=== PATIENT | male | born 1955 | race Caucasian/White ===

== ENCOUNTER 2018-03-07 01:02 | Observation (INO) | payer OTHER, BC ==
[2018-03-07 02:00] LABS: ADD MAN DIFF? NO
[2018-03-07 02:01] LABS: WHITE BLOOD COUNT 15.8 10^3/ul (4.8-10.8)
[2018-03-07 02:01] LABS: BASOPHIL # 0.1 10^3/ul (0.0-0.1); BASOPHILS % 0.4 % (0.0-2.0); EOSINOPHILS # 0.1 10^3/ul (0.0-0.5); EOSINOPHILS % 0.6 % (0.0-7.0); HEMATOCRIT 43.3 % (42.0-52.0); HEMOGLOBIN 14.5 g/dl (14.0-18.0); LYMPHOCYTES # 1.6 10^3/ul (0.8-2.9); MEAN CORPUSCULAR HEMOGLOBIN 30.1 pg (29.0-33.0); MEAN CORPUSCULAR HGB CONC 33.5 g/dl (32.0-37.0); MEAN CORPUSCULAR VOLUME 89.8 fl (82.0-101.0); MEAN PLATELET VOLUME 10.3 fl (7.4-10.4); MONOCYTE # 1.4 10^3/ul (0.3-0.9); MONOCYTES % 8.6 % (0.0-11.0); NEUTROPHIL # 12.6 10^3/ul (1.6-7.5); NEUTROPHILS % 79.9 % (39.0-77.0); PLATELET COUNT 226 10^3/UL (140-415); RED BLOOD COUNT 4.82 10^6/ul (4.70-6.10); RED CELL DISTRIBUTION WIDTH 12.8 % (11.5-14.5)
[2018-03-07 02:19] LABS: ANION GAP 12 (8-16); BLOOD UREA NITROGEN 17 mg/dl (7-20); CARBON DIOXIDE 25 mmol/L (21-31); CHLORIDE 108 mmol/L (97-110); GLUCOSE 150 mg/dl (70-220); POTASSIUM 4.1 mmol/L (3.5-5.1); SODIUM 141 mmol/L (135-144)
[2018-03-07] MEDS: ASPIRIN 81 MG TAB PO (02:22)
[2018-03-07] MEDS: NITROGLYCERIN 2% 1 GM OINT PKT TD (02:24)
[2018-03-07 02:25] LABS: INR 0.91; PROTIME 12.3 Sec (11.9-14.9)
[2018-03-07 02:26] LABS: PARTIAL THROMBOPLASTIN TIME 25.3 Sec (23.0-35.0)
[2018-03-07 02:31] LABS: TROPONIN-I < 0.012 ng/ml (0.000-0.120)
[2018-03-07] MEDS ORDERED: NACL 0.9% 3 ML SYG IV (07:00)
[2018-03-07] MEDS ORDERED: NITROGLYCERIN (SL) 0.4 MG TAB SL (07:00)
[2018-03-07] MEDS ORDERED: ACETAMINOPHEN 325 MG TAB PO (07:00)
[2018-03-07] MEDS ORDERED: ONDANSETRON 4 MG INJ IV (07:00)
[2018-03-07 09:24] LABS: CREATINE KINASE 128 IU/L (23-200)
[2018-03-07 09:34] LABS: CK INDEX 0.4; CK-MB 0.51 ng/ml (0.0-2.4); TROPONIN-I < 0.012 ng/ml (0.000-0.120)
[2018-03-07] MEDS: ASPIRIN (EC) 81 MG TAB PO (10:38)
[2018-03-07] MEDS: PANTOPRAZOLE (EC) 40 MG TAB PO (10:38)
[2018-03-07] MEDS: METOPROLOL 50 MG TAB PO ×2 (10:39→21:33)
[2018-03-07] MEDS: LISINOPRIL 5 MG TAB PO (10:39)
[2018-03-07] MEDS: ENOXAPARIN 40 MG/0.4 ML SYG SC (10:52)
[2018-03-07] MEDS: SUCRALFATE (100 MG/ML) 10ML CUP PO ×3 (13:19→21:33)
[2018-03-07 15:05] LABS: CREATINE KINASE 114 IU/L (23-200)
[2018-03-07 15:16] LABS: CK INDEX 0.4; TROPONIN-I < 0.012 ng/ml (0.000-0.120)
[2018-03-07] MEDS: ATORVASTATIN 20 MG TAB PO (21:33)
[2018-03-08] MEDS: PANTOPRAZOLE (EC) 40 MG TAB PO (05:46)
[2018-03-08 07:42] LABS: ADD UMIC NO; UR ASCORBIC ACID 40 mg/dL (NEGATIVE); UR BILIRUBIN (Dip) NEGATIVE (NEGATIVE); UR BLOOD (Dip) NEGATIVE (NEGATIVE); UR CLARITY CLEAR (CLEAR); UR COLOR YELLOW (YELLOW); UR GLUCOSE (Dip) NEGATIVE (NEGATIVE); UR KETONES (Dip) NEGATIVE (NEGATIVE); UR LEUKOCYTE ESTERASE (Dip) NEGATIVE Leu/ul (NEGATIVE); UR NITRITE (Dip) NEGATIVE (NEGATIVE); UR SPECIFIC GRAVITY (Dip) 1.015 (1.003-1.030); UR TOTAL PROTEIN (Dip) NEGATIVE (NEGATIVE); UR UROBILINOGEN (Dip) NEGATIVE (NEGATIVE)
[2018-03-08 08:12] LABS: ADD MAN DIFF? NO
[2018-03-08 08:20] LABS: ABNORMAL IP MESSAGE 1; BASOPHILS % 0.3 % (0.0-2.0); EOSINOPHILS # 0.2 10^3/ul (0.0-0.5); EOSINOPHILS % 1.3 % (0.0-7.0); HEMATOCRIT 43.2 % (42.0-52.0); HEMOGLOBIN 14.4 g/dl (14.0-18.0); LYMPHOCYTES # 2.5 10^3/ul (0.8-2.9); LYMPHOCYTES % 20.2 % (15.0-51.0); MEAN CORPUSCULAR HEMOGLOBIN 30.2 pg (29.0-33.0); MEAN CORPUSCULAR HGB CONC 33.3 g/dl (32.0-37.0); MEAN CORPUSCULAR VOLUME 90.6 fl (82.0-101.0); MEAN PLATELET VOLUME 10.2 fl (7.4-10.4); MONOCYTE # 1.6 10^3/ul (0.3-0.9); MONOCYTES % 13.1 % (0.0-11.0); NEUTROPHIL # 7.9 10^3/ul (1.6-7.5); NEUTROPHILS % 64.6 % (39.0-77.0); PLATELET COUNT 209 10^3/UL (140-415); POSITIVE DIFF @See below; RED BLOOD COUNT 4.77 10^6/ul (4.70-6.10)
[2018-03-08 08:20] LABS: WHITE BLOOD COUNT 12.3 10^3/ul (4.8-10.8)
[2018-03-08] MEDS: ASPIRIN (EC) 81 MG TAB PO (08:43)
[2018-03-08] MEDS: SUCRALFATE (100 MG/ML) 10ML CUP PO (08:43)
[2018-03-08] MEDS: ENOXAPARIN 40 MG/0.4 ML SYG SC (08:43)
[2018-03-08] MEDS: LISINOPRIL 5 MG TAB PO (08:43)
[2018-03-08] MEDS: METOPROLOL 50 MG TAB PO (08:44)
[2018-03-08 08:48] LABS: ALANINE AMINOTRANSFERASE 44 IU/L (13-69); ALBUMIN 3.6 g/dl (3.3-4.9); ALBUMIN/GLOBULIN RATIO 1.12; ALKALINE PHOSPHATASE 52 IU/L (42-121); ANION GAP 13 (8-16); ASPARTATE AMINO TRANSFERASE 24 IU/L (15-46); BILIRUBIN,INDIRECT 1.3 mg/dl (0-1.1); BILIRUBIN,TOTAL 1.3 mg/dl (0.2-1.3); BLOOD UREA NITROGEN 15 mg/dl (7-20); CARBON DIOXIDE 30 mmol/L (21-31); CHLORIDE 103 mmol/L (97-110); CHOL/HDL RATIO 2.9 RATIO; CHOLESTEROL 145 mg/dl (100-200); CREATININE 0.93 mg/dl (0.61-1.24); GLUCOSE 111 mg/dl (70-220); HDL CHOLESTEROL 49 mg/dl (30-78); LDL CHOLESTEROL,CALCULATED 75 mg/dl; MAGNESIUM 2.1 mg/dl (1.7-2.5); POTASSIUM 4.2 mmol/L (3.5-5.1); SODIUM 142 mmol/L (135-144); TOTAL PROTEIN 6.8 g/dl (6.1-8.1); TRIGLYCERIDES 107 mg/dl (0-149)
== END 2018-03-08 13:00 | disposition home or self-care (01) ==
LOC: E/R 01:02 → TEL 04:04
DX: I25.10 Atherosclerotic heart disease of native coronary artery without angina pectoris (principal); I10 Essential (primary) hypertension; D72.829 Elevated white blood cell count, unspecified
CPT/HCPCS: 36415; 71045; 80048; 80053; 80061; 81003; 82550; 82553; 83036; 83735; 84443; 84484; 85025; 85610; 85730; 93005; 93306; 99285-25; G0378